=== PATIENT | male | born 1950 | race Caucasian/White ===

== ENCOUNTER 2025-01-27 08:08 | Outpatient (CLI) | payer MEDICARE | END 2025-01-27 08:09 | disposition home or self-care (01) | LOC: CSHWCC 08:08 | PROVIDERS: ATTEND Nurse Practitioner Family | DX: S01.00XD Unspecified open wound of scalp, subsequent encounter (principal); F31.9 Bipolar disorder, unspecified | CPT/HCPCS: 11106; G0463; 88305; 99213 ==

== ENCOUNTER 2025-02-10 09:33 | Outpatient (CLI) | payer MEDICARE | END 2025-02-10 09:34 | disposition home or self-care (01) | LOC: CSHWCC 09:33 | PROVIDERS: ATTEND Nurse Practitioner Family | DX: C43.4 Malignant melanoma of scalp and neck (principal); S01.00XD Unspecified open wound of scalp, subsequent encounter; F31.9 Bipolar disorder, unspecified | CPT/HCPCS: 99213; G0463 ==

== ENCOUNTER 2025-03-03 14:34 | Outpatient (CLI) | payer MEDICARE | END 2025-03-03 14:35 | disposition home or self-care (01) | LOC: CSHWCC 14:34 | PROVIDERS: ATTEND Nurse Practitioner Family | DX: L89.893 Pressure ulcer of other site, stage 3 (principal); F31.9 Bipolar disorder, unspecified | CPT/HCPCS: 11044; G0463; 99213 ==